=== PATIENT | male | born 1995 | race African-American/Black ===

== ENCOUNTER 2019-07-05 10:15 | Emergency (ER) | payer MEDICAID ==
[2019-07-05 10:25] VITALS: BP 112/68
--- NOTE | 2019-07-05 11:01 | ED Physician Documentation ---
PD HPI MALE - Stated complaint Stated Complaint: MALE - Chief complaint Chief Complaint: UTI - History obtained from History obtained from: Patient - History of Present Illness Timing - onset: How many days ago (4) Timing - duration: Days (4) Timing - details: Abrupt onset, Still present Associated symptoms: No: Dysuria, Urinary frequency, Unable to urinate, Hematuria, Discharge, Genital sore / lesion, Testiclar pain, Scrotal swelling, Abdominal pain PD HPI MALE CONTRIB FACTORS: Exposed to STD Similar symptoms before: Has not had sx before Recently seen: Not recently seen - Additional information Additional information: Previously well 23-year-old male has been told by a female sexual partner that she had chlamydia. He has been exposed. He has no symptoms, he denies any urinary urgency frequency or dysuria denies any masses in the testicles or scrotum denies any masses in the inguinal area. Denies any sores. He is otherwise well. He does not have a primary care doctor. Review of Systems Constitutional: denies: Fever, Chills, Myalgias Eyes: denies: Decreased vision Ears: denies: Ear pain Nose: denies: Congestion Throat: denies: Sore throat Cardiac: denies: Chest pain / pressure Respiratory: denies: Cough GI: denies: Vomiting : denies: Dysuria, Frequency, Discharge Skin: denies: Rash Musculoskeletal: denies: Neck pain, Back pain, Extremity pain PD PAST MEDICAL HISTORY - Past Medical History Respiratory: Asthma - Allergies Allergies/Adverse Reactions: Allergies Allergy/AdvReac Type Severity Reaction Status Date / Time No Known Drug Allergies Allergy Verified 07/05/19 10:22 - Social History Does the pt smoke?: No Smoking Status: Never smoker Does the pt drink ETOH?: Yes Does the pt have substance abuse?: No - Immunizations Immunizations are current?: Yes PD ED PE NORMAL - Vitals Vital signs reviewed: Yes (normal ) - General General: Alert and oriented X 3, No acute distress, Well developed/nourished - HEENT HEENT: Atraumatic, PERRL, EOMI - Respiratory Respiratory: No respiratory distress - Derm Derm: Normal color, Warm and dry, No rash - Extremities Extremities: No deformity, No edema - Neuro Neuro: Alert and oriented X 3, neonatal surgeon 2-12 intact, No motor deficit, No sensory deficit, Normal speech Eye Opening: Spontaneous Motor: Obeys Commands Verbal: Oriented GCS Score: 15 - Psych Psych: Normal mood, Normal affect Results - Vitals Vitals: Vital Signs - 24 hr 07/05/19 10:21 Temperature 36.7 C Heart Rate 70 Respiratory 16 Rate Blood Pressure 112/68 O2 Saturation 100 Oxygen O2 Source Room air PD MEDICAL DECISION MAKING - ED course Complexity details: considered differential, d/w patient ED course: 23-year-old male with STD exposure presumed to chlamydia. He is treated here in the emergency department with 250 mg of Rocephin IM and 1 g of a azithromycin. A urine is obtained for laboratory analysis of DNA for GC and chlamydia. Departure - Departure Disposition: 01 Home, Self Care Clinical Impression: Exposure to STD Condition: Stable Instructions: ED STD Male Treated Follow-Up: [facility] [Provider Group]
[2019-07-05] MEDS ORDERED: LIDOCAINE 1% 2 ML VIAL MC ONE (11:03)
[2019-07-05] MEDS ORDERED: cefTRIAXone 250 MG VIAL IM STA (11:03)
[2019-07-05] MEDS ORDERED: AZITHROMYCIN 250 MG TABLET PO STA (11:03)
[2019-07-05 14:32] LABS: TRICHOMONAS VAGINALIS DNA NEGATIVE (NEGATIVE)
== END 2019-07-05 11:17 | disposition home or self-care (01) ==
LOC: ED 10:15
DX: Z20.2 Contact with and (suspected) exposure to infections with a predominantly sexual mode of transmission (principal)
CPT/HCPCS: 87491; 87591; 87661; 99282; 99283; A9270; 87081